=== PATIENT | female | born 1960 | race Caucasian/White ===

== ENCOUNTER 2016-09-13 18:58 | Emergency (ER) | payer MEDICARE, MEDICAID ==
[~2016-09-13] VITALS: Wt 46.0 kg
[2016-09-13] MEDS ORDERED: ACETAMINOPHEN 500 MG TAB PO STA (19:40)
--- NOTE | 2016-09-13 21:47 | RADRPT ---
PROCEDURE: Lumbar Spine. CLINICAL INDICATION: Back pain. TECHNIQUE: Three views of the lumbar spine. COMPARISON: None available FINDINGS: There is straightening of the lumbar lordosis. No spondylolisthesis is seen. The vertebral body he ights are maintained. No acute fracture or subluxation is seen. There are no significant degenerati ve changes. Surgical clips are noted in the right upper quadrant and epigastrium. IMPRESSION: 1. No acute fracture or subluxation. 2. Straightening of the lumbar lordosis. RPTAT: HTAR .Simon Gaviria MD, Date Time Electronically viewed and signed by .Simon Gaviria MD, on 09/13/2016 21:47 .R/
--- NOTE | 2016-09-13 21:48 | RADRPT ---
PROCEDURE: Chest x-ray. CLINICAL INDICATION: Injury, chest pain. TECHNIQUE: PA view of the chest. COMPARISON: None. FINDINGS: No pulmonary edema or conolidation is identified. The cardiac silhouette is not enlarged. There is blunting of the left costophrenic angle, suggestive of pleural scarring. No pleural effusion is seen . There is no pneumothorax. No fracture is identified. IMPRESSION: 1. No radiographic evidence of traumatic chest injury. RPTAT: HTAR .Simon Gaviria MD, Date Time Electronically viewed and signed by .Simon Gaviria MD, on 09/13/2016 21:48 .R/
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
--- NOTE | 2016-09-13 21:49 | RADRPT ---
PROCEDURE: XR Forearm. CLINICAL INDICATION: Pain. TECHNIQUE: AP and lateral views of the left forearm. COMPARISON: None available. FINDINGS: No fracture or dislocation is identified. The joint spaces are preserved. There is no significant soft tissue swelling. IMPRESSION: 1. No fracture or dislocation of the left forearm. RPTAT: HTAR .Simon Gaviria MD, MD Date Time Electronically viewed and signed by .Simon Gaviria MD, on 09/13/2016 21:49 .R/
[2016-09-13] MEDS ORDERED: ACET500C5 PO (22:29)
[2016-09-13 22:44] VITALS: BP 113/55; PULSE 60; RESP 16
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
== END 2016-09-13 22:44 | disposition home or self-care (01) ==
LOC: FTE 18:58
DX: S50.12XA Contusion of left forearm, initial encounter (principal); S39.92XA Unspecified injury of lower back, initial encounter; S29.9XXA Unspecified injury of thorax, initial encounter; V43.52XA Car driver injured in collision with other type car in traffic accident, initial encounter; Z85.028 Personal history of other malignant neoplasm of stomach
CPT/HCPCS: 71010; 72040; 72100; 73090